=== PATIENT | male | born 1990 | race Hispanic/Latino ===

== ENCOUNTER 2024-03-21 12:35 | Emergency (ER) | payer OTHER ==
[~2024-03-21] VITALS: Ht 167.6 cm; Wt 76.5 kg
[2024-03-21 14:15] VITALS: BP 137/89
== END 2024-03-21 14:17 | disposition other institution, planned readmission (95) ==
LOC: ED 12:35
DX: T18.9XXA Foreign body of alimentary tract, part unspecified, initial encounter (principal); W44.8XXA Other foreign body entering into or through a natural orifice, initial encounter
CPT/HCPCS: 74022; 99283